=== PATIENT | female | born 1980 | race Two or more races ===

== ENCOUNTER → 2025-02-18 | Outpatient (CLI) | payer MEDICAID, SELFPAY ==
--- NOTE | 2025-02-18 | XR_ITS ---
Examination: Left os calcis 2 views TECHNIQUE: Axial lateral left os calcis 2 views Date and time: February 18, 2025 1138 hours INDICATIONS: Left heel pain beginning 6 months ago. FINDINGS: 3 mm plantar bony calcaneal spur No fracture or dislocation IMPRESSION: 3 mm plantar bony calcaneal spur
== END | disposition home or self-care (01) ==
PROVIDERS: PCP Physician Assistant; Referring Provider Physician Assistant; Visit Provider Physician Assistant
DX: M77.32 Calcaneal spur, left foot (principal)
CPT/HCPCS: 73650

== ENCOUNTER → 2025-04-02 | Outpatient (CLI) | payer MEDICAID, SELFPAY ==
--- NOTE | 2025-04-02 12:30 | XR_ITS ---
Examination: Lumbar spine 3 views Technique one AP lateral coned lateral lower lumbar spine 3 views Date and time: April 02, 2025 1242 hours INDICATIONS: Low back pain beginning one year ago FINDINGS: Adequate alignment lumbar vertebral bodies Mild disc narrowing L5-S1 No spondylolisthesis IMPRESSION: Mild degenerative disc disease L5-S1
== END | disposition home or self-care (01) ==
PROVIDERS: PCP Physician Assistant; Referring Provider Physician Assistant; Visit Provider Physician Assistant
DX: M51.370 Other intervertebral disc degeneration, lumbosacral region with discogenic back pain only (principal)
CPT/HCPCS: 72100

== ENCOUNTER → 2025-08-12 | Outpatient (CLI) | payer MEDICAID, SELFPAY ==
--- NOTE | 2025-08-12 15:00 | XR_ITS ---
Examination: MRI lumbar spine without contrast Date and time of exam: August 12, 2025, 1528 hours INDICATIONS: Low back pain radiating down the left leg numbness in left leg 11 months Technique: Multiple MRI axial and sagittal sections lumbar spine. Sagittal T2-weighted images, TR 3500, TE 118 T1 weighted transverse sections, TR 688 T8.5, T2-weighted sagittal sections T1 weighted sagittal sections TR 621, TE 30 T2 axial sections, TR 4, 190, TE 84. Findings: Adequate alignment lumbar vertebral bodies on the lateral view Mild disc narrowing posteriorly L5-S1 No lumbar fracture Adequate marrow signal lumbar vertebral bodies Disc desiccation L5-S1 L5-S1 4 mm central right paracentral disc bulge contiguous with the right S1 nerve root More cephalad levels are unremarkable IMPRESSION: L5-S1 4 mm central right paracentral disc bulge contiguous with the right S1 nerve root
== END | disposition home or self-care (01) ==
LOC: SMRI 14:38
PROVIDERS: PCP Physician Assistant; Referring Provider Physician Assistant; Visit Provider Physician Assistant
DX: M51.372 Other intervertebral disc degeneration, lumbosacral region with discogenic back pain and lower extremity pain (principal)
CPT/HCPCS: 72148